=== PATIENT | female | born 1960 | race Two or more races ===

== ENCOUNTER 2024-05-14 14:48 | Inpatient (IN) | payer OTHER ==
[~2024-05-14] VITALS: Ht 154.9 cm; Wt 59.0 kg
[2024-05-14] MEDS ORDERED: CLONAZEPAM1 MG (15:16)
[2024-05-14] MEDS ORDERED: SEROQUEL25 MG (15:16)
[2024-05-14] MEDS ORDERED: NEURONTIN300 MG (15:16)
[2024-05-14] MEDS ORDERED: 0.9 % SODIUM CHLORIDE 1,000 ML IV ONE (16:15)
[2024-05-14] MEDS ORDERED: MULTIVIT INFUSN,ADULT 4,VIT K 10 ML VIAL IV ONE (16:15)
[2024-05-14 17:05] LABS: HEMATOCRIT 30.4 % (36.0-45.00); HEMOGLOBIN 9.6 g/dL (12.0-15.00); MEAN CELL VOLUME 71.1 fL (80.00-100.00); MEAN CORPUSCULAR HEMOGLOBIN 22.4 pg (27.00-32.0); MEAN CORPUSCULAR HGB CONC 31.6 g/dl (32.0-36.0); PLATELET COUNT 786 K/uL (150-450); RED BLOOD COUNT 4.28 M/uL (4.00-6.00); RED CELL DISTRIBUTION WIDTH 17.8 % (11.5-14.5)
[2024-05-14 17:09] LABS: ALBUMIN 2.2 gm/dL (3.4-5.0); BILIRUBIN TOTAL 0.66 mg/dL (0.3-1.2); CALCIUM 8.9 mg/dL (8.5-10.1); CREATININE SERUM 0.73 mg/dL (0.55-1.02); GFR 80.26; GLOBULINA 4.9 G/DL (2.4-3.5); POTASSIUM 4.16 mEq/L (3.5-5.1); TOTAL PROTEIN 7.1 gm/dL (6.4-8.2)
[2024-05-14] MEDS ORDERED: CEFTRIAXONE SODIUM 2,000 MG VIAL IV ONE (18:00)
[2024-05-14] MEDS ORDERED: CEFTRIAXONE SODIUM 2,000 MG in 0.9 % SODIUM CHLORIDE 100 ML IV SCH (20:50)
[2024-05-14] MEDS ORDERED: FAMOTIDINE/PF 20 MG/2 ML VIAL IV SCH (20:50)
[2024-05-14] MEDS ORDERED: ONDANSETRON HCL 4 MG in 0.9 % SODIUM CHLORIDE 50 ML IV PRN (21:00)
[2024-05-14] MEDS ORDERED: 0.9 % SODIUM CHLORIDE 1,000 ML IV SCH (21:00)
[2024-05-14] MEDS ORDERED: ACETAMINOPHEN 325 MG TABLET PO PRN (21:00)
[2024-05-14] MEDS ORDERED: QUETIAPINE FUMARATE 25 MG TABLET PO SCH (21:03)
[2024-05-14] MEDS ORDERED: CLONAZEPAM 1 MG TABLET PO SCH (21:03)
[2024-05-14] MEDS ORDERED: GABAPENTIN 300 MG CAPSULE PO SCH (21:04)
[2024-05-14 23:06] LABS: ABG PH 7.439 (7.35-7.45); ABG PO2 81.7 mmHg (80-100); ABG pCO2 39.8 mmHg (35-45); BASE EXCESS 2.1 mmol/l; BICARBONATE 26.4 mmol/l (23-25); SaO2 96.5 %; Tco2 27.6 mmol/l
[2024-05-14 23:09] LABS: o2 21 %
[2024-05-14 23:10] LABS: allen test SATISFACTORY; puncture site RADIAL LEFT
[2024-05-15] MEDS ORDERED: GUAIFENESIN 200 MG/10 ML BLIST.PACK PO SCH (07:41)
[2024-05-15] MEDS ORDERED: IPRATROPIUM BROMIDE 0.5 MG/2.5 ML AMPUL.NEB IH SCH (07:41)
[2024-05-15 09:21] LABS: PH,URINE 5.5 (5.0-8.0); URINE APPEARANCE Clear; URINE BILIRRUBIN Small (NEGATIVE); URINE BLOOD Negative; URINE COLOR Dark Yellow; URINE GLUCOSE Negative (NEGATIVE); URINE KETONE Negative (NEGATIVE); URINE LEUKOCYTE Trace; URINE NITRATE Negative; URINE PROTEIN 30 (NEGATIVE)
[2024-05-15 09:25] LABS: URINE BACTERIA 1070.9 uL (0.0-1933); URINE EPITHELIAL CELLS 29.9 uL (0.0-38.8); URINE RBC 2.4 uL (0.0-20.8); URINE WBC 34.2 uL (0.0-23.2)
[2024-05-15 10:02] LABS: URINE CAST 0.76 uL (0.0-1.40)
[2024-05-16 08:58] LABS: MEAN CELL VOLUME 72.3 fL (80.00-100.00); MEAN CORPUSCULAR HEMOGLOBIN 22.4 pg (27.00-32.0); RED BLOOD COUNT 4.01 M/uL (4.00-6.00); RED CELL DISTRIBUTION WIDTH 17.7 % (11.5-14.5)
[2024-05-16] MEDS ORDERED: PIPERACILLIN/TAZOBACTAM SODIUM 3.375 GM VIAL IV SCH (09:39)
[2024-05-16 10:36] LABS: PLATELET COUNT 810 K/uL (150-450)
[2024-05-16] MEDS ORDERED: BENZONATATE 200 MG CAPSULE PO SCH (17:00)
[2024-05-17] MEDS ORDERED: AMIODARONE IN DEXTROSE,ISO-OSM 360 MG/200 ML IV.SOLN IV SCH (07:30)
[2024-05-17] MEDS ORDERED: CEFTRIAXONE SODIUM 2,000 MG VIAL IV SCH (09:00)
[2024-05-17] MEDS ORDERED: fentaNYL CITRATE 50 MCG/ML AMPUL IV PUSH ONE (16:30)
[2024-05-17] MEDS ORDERED: MIDAZOLAM HCL 2 MG/2 ML VIAL IV PUSH ONE (16:30)
[2024-05-17 20:36] LABS: TP PLEURAL FLUID 2.6 g/dl
[2024-05-17] MEDS ORDERED: CLONAZEPAM 1 MG TABLET PO SCH (21:00)
[2024-05-17] MEDS ORDERED: FUROsemide 20 MG/2 ML VIAL IV ONE (21:00)
[2024-05-17 21:06] LABS: MONONUCLEAR 98 %; PLEURAL FLUID APPEARANCE HAZY; PLEURAL FLUID COLOR YELLOW; POLYMORPHONUCLEAR 2 %
[2024-05-18] MEDS ORDERED: AMIODARONE HCL 200 MG TABLET PO SCH (09:00)
[2024-05-18 11:13] LABS: ABG PH 7.474 (7.35-7.45); ABG PO2 57.1 mmHg (80-100); ABG pCO2 39.5 mmHg (35-45); BASE EXCESS 4.5 mmol/l; BICARBONATE 28.3 mmol/l (23-25); SaO2 91.7 %; Tco2 29.5 mmol/l
[2024-05-18 11:14] LABS: allen test SATISFACTORY; o2 21 %; puncture site RADIAL RIGHT
[2024-05-18 15:11] LABS: kappa lambda r 0.9 (0.26-1.65); kappa light 25.5 mg/L (3.3-19.4); lambda light 28.4 mg/L (5.7-26.3)
[2024-05-18] MEDS ORDERED: METHYLPREDNISOLONE SOD SUCC 40 MG VIAL IV SCH (21:00)
[2024-05-19] MEDS ORDERED: EMOLLIENT COMBINATION NO.92 2.5 OZ BOTTLE TOP SCH (09:00)
[2024-05-19 11:11] LABS: HEMATOCRIT 29.4 % (36.0-45.00); HEMOGLOBIN 9.1 g/dL (12.0-15.00); MEAN CELL VOLUME 71.6 fL (80.00-100.00); MEAN CORPUSCULAR HEMOGLOBIN 22.1 pg (27.00-32.0); MEAN CORPUSCULAR HGB CONC 30.9 g/dl (32.0-36.0); PLATELET COUNT 746 K/uL (150-450); RED BLOOD COUNT 4.11 M/uL (4.00-6.00); RED CELL DISTRIBUTION WIDTH 18.4 % (11.5-14.5)
[2024-05-19 12:05] LABS: ALBUMIN 1.9 gm/dL (3.4-5.0); BILIRUBIN TOTAL 0.34 mg/dL (0.3-1.2); CALCIUM 8.4 mg/dL (8.5-10.1); CREATININE SERUM 0.44 mg/dL (0.55-1.02); GFR 143.96; GLOBULINA 3.5 G/DL (2.4-3.5); POTASSIUM 3.9 mEq/L (3.5-5.1); TOTAL PROTEIN 5.4 gm/dL (6.4-8.2)
[2024-05-19] MEDS ORDERED: ENOXAPARIN SODIUM 40 MG/0.4 ML SYRINGE SUBCUTANEO SCH (19:53)
[2024-05-20] MEDS ORDERED: AMIODARONE HCL 200 MG TABLET PO SCH (09:00)
[2024-05-20] MEDS ORDERED: LACTULOSE 20 G/30 ML BLIST.PACK PO SCH (09:00)
[2024-05-21] MEDS ORDERED: TUBERCULIN,PURIF.PROT.DERIV. 5 TU/0.1 ML VIAL ID NR (17:15)
[2024-05-22] MEDS ORDERED: ENOXAPARIN SODIUM 40 MG/0.4 ML SYRINGE SUBCUTANEO SCH (21:00)
[2024-05-23 08:14] LABS: HEMATOCRIT 25.6 % (36.0-45.00); MEAN CELL VOLUME 72.1 fL (80.00-100.00); MEAN CORPUSCULAR HGB CONC 31.6 g/dl (32.0-36.0); PLATELET COUNT 600 K/uL (150-450); RED BLOOD COUNT 3.56 M/uL (4.00-6.00); RED CELL DISTRIBUTION WIDTH 18.1 % (11.5-14.5)
[2024-05-23 08:47] LABS: HEMOGLOBIN 8.1 g/dL (12.0-15.00); MEAN CORPUSCULAR HEMOGLOBIN 22.7 pg (27.00-32.0)
[2024-05-23] MEDS ORDERED: ENOXAPARIN SODIUM 80 MG/0.8 ML SYRINGE SUBCUTANEO SCH (09:00)
[2024-05-23 09:16] LABS: ALBUMIN 1.7 gm/dL (3.4-5.0); BILIRUBIN TOTAL 0.38 mg/dL (0.3-1.2); CREATININE SERUM 0.35 mg/dL (0.55-1.02); GFR 187.47; GLOBULINA 2.9 G/DL (2.4-3.5); POTASSIUM 3.64 mEq/L (3.5-5.1); TOTAL PROTEIN 4.6 gm/dL (6.4-8.2)
[2024-05-23] MEDS ORDERED: ENOXAPARIN SODIUM 60 MG/0.6 ML SYRINGE SUBCUTANEO SCH (21:00)
[2024-05-24] MEDS ORDERED: KETOROLAC TROMETHAMINE 30 MG VIAL IM NR (08:00)
[2024-05-24] MEDS ORDERED: ZINC OXIDE 30 GM TUBE TOP SCH (21:00)
[2024-05-24] MEDS ORDERED: QUETIAPINE FUMARATE 25 MG TABLET PO SCH (21:00)
[2024-05-25] MEDS ORDERED: AMIODARONE HCL 200 MG TABLET PO SCH (09:00)
[2024-05-25] MEDS ORDERED: EPOETIN ALFA-EPBX 10,000 UNIT/ML VIAL (Retacrit) SUBCUTANEO SCH (09:00)
[2024-05-25] MEDS ORDERED: FUERA DE FORMULARIO 1 U FF PO SCH (17:00)
[2024-05-25] MEDS ORDERED: TEMAZEPAM 15 MG CAPSULE PO SCH (21:00)
[2024-05-26] MEDS ORDERED: ALPRAzolam 0.25 MG TABLET PO SCH (09:00)
[2024-05-26 09:20] LABS: HEMATOCRIT 29.3 % (36.0-45.00); MEAN CORPUSCULAR HEMOGLOBIN 22.2 pg (27.00-32.0); MEAN CORPUSCULAR HGB CONC 30.8 g/dl (32.0-36.0); PLATELET COUNT 495 K/uL (150-450); RED BLOOD COUNT 4.07 M/uL (4.00-6.00); RED CELL DISTRIBUTION WIDTH 19.1 % (11.5-14.5)
[2024-05-26] MEDS ORDERED: TACROLIMUS 1 MG CAPSULE PO SCH (09:24)
[2024-05-26 10:29] LABS: CALCIUM 8.5 mg/dL (8.5-10.1); CREATININE SERUM 0.34 mg/dL (0.55-1.02); GFR 193.84; POTASSIUM 4.31 mEq/L (3.5-5.1)
[2024-05-27] MEDS ORDERED: MINERAL OIL 30 ML BLIST.PACK PO NR (08:30)
[2024-05-27] MEDS ORDERED: MAGNESIUM HYDROXIDE 30 ML BLIST.PACK PO NR (08:30)
[2024-05-27] MEDS ORDERED: LACTULOSE 20 G/30 ML BLIST.PACK PO SCH (09:00)
[2024-05-27] MEDS ORDERED: AMIODARONE HCL 200 MG TABLET PO SCH (09:00)
[2024-05-28 08:34] LABS: ALBUMIN 1.9 gm/dL (3.4-5.0); BILIRUBIN TOTAL 0.23 mg/dL (0.3-1.2); CALCIUM 8.3 mg/dL (8.5-10.1); CREATININE SERUM 0.41 mg/dL (0.55-1.02); GFR 156.18; GLOBULINA 3.1 G/DL (2.4-3.5); POTASSIUM 3.69 mEq/L (3.5-5.1)
[2024-05-28 08:36] LABS: HEMATOCRIT 26.6 % (36.0-45.00); MEAN CELL VOLUME 72.6 fL (80.00-100.00); MEAN CORPUSCULAR HGB CONC 31.1 g/dl (32.0-36.0); PLATELET COUNT 587 K/uL (150-450); RED BLOOD COUNT 3.66 M/uL (4.00-6.00); RED CELL DISTRIBUTION WIDTH 19.5 % (11.5-14.5)
[2024-05-28 10:00] LABS: MEAN CORPUSCULAR HEMOGLOBIN 22.6 pg (27.00-32.0)
[2024-05-28 10:01] LABS: HEMOGLOBIN 8.3 g/dL (12.0-15.00)
[2024-05-31 09:02] LABS: HEMATOCRIT 28.8 % (36.0-45.00); MEAN CELL VOLUME 73.2 fL (80.00-100.00); MEAN CORPUSCULAR HEMOGLOBIN 22.8 pg (27.00-32.0); MEAN CORPUSCULAR HGB CONC 31.1 g/dl (32.0-36.0); PLATELET COUNT 531 K/uL (150-450); RED BLOOD COUNT 3.93 M/uL (4.00-6.00); RED CELL DISTRIBUTION WIDTH 20.1 % (11.5-14.5)
[2024-05-31 09:20] LABS: CALCIUM 8.6 mg/dL (8.5-10.1); CREATININE SERUM 0.48 mg/dL (0.55-1.02); GFR 130.2; POTASSIUM 4.7 mEq/L (3.5-5.1)
[2024-06-01] MEDS ORDERED: fentaNYL CITRATE 50 MCG/ML AMPUL IV PUSH ONE (16:15)
[2024-06-01] MEDS ORDERED: MIDAZOLAM HCL 2 MG/2 ML VIAL IV PUSH ONE (16:15)
[2024-06-02] MEDS ORDERED: fentaNYL CITRATE 50 MCG/ML AMPUL IV PUSH NR (17:00)
[2024-06-02] MEDS ORDERED: MIDAZOLAM HCL 2 MG/2 ML VIAL IV PUSH NR (17:00)
[2024-06-02] MEDS ORDERED: fentaNYL CITRATE 50 MCG/ML AMPUL IV ONE (22:15)
[2024-06-04] MEDS ORDERED: DEXAMETHASONE SODIUM PHOSPHATE 4 MG/ML VIAL IV SCH (09:00)
[2024-06-04] MEDS ORDERED: LORATADINE 10 MG TABLET PO SCH (09:00)
[2024-06-04] MEDS ORDERED: GUAIFENESIN 200 MG/10 ML BLIST.PACK PO SCH (12:00)
[2024-06-05 08:48] LABS: ALBUMIN 2.4 gm/dL (3.4-5.0); BILIRUBIN TOTAL 0.29 mg/dL (0.3-1.2); CALCIUM 9.3 mg/dL (8.5-10.1); CREATININE SERUM 0.55 mg/dL (0.55-1.02); GFR 111.28; POTASSIUM 4.81 mEq/L (3.5-5.1); TOTAL PROTEIN 6.4 gm/dL (6.4-8.2)
[2024-06-05 08:50] LABS: C-REACTIVE PROTEIN 8.44 MG/DL (0.00-0.29)
[2024-06-05 10:38] LABS: HEMATOCRIT 32.8 % (36.0-45.00); HEMOGLOBIN 10.4 g/dL (12.0-15.00); MEAN CELL VOLUME 72.7 fL (80.00-100.00); MEAN CORPUSCULAR HEMOGLOBIN 23.1 pg (27.00-32.0); MEAN CORPUSCULAR HGB CONC 31.7 g/dl (32.0-36.0); PLATELET COUNT 546 K/uL (150-450); RED BLOOD COUNT 4.51 M/uL (4.00-6.00); RED CELL DISTRIBUTION WIDTH 20.4 % (11.5-14.5)
[2024-06-05 10:57] LABS: ERYTHROCYTE SEDIMENTATION RATE > 130 mm/hr
[2024-06-09 16:37] LABS: CALCIUM 9.1 mg/dL (8.5-10.1); CREATININE SERUM 0.69 mg/dL (0.55-1.02); GFR 85.65; POTASSIUM 5.05 mEq/L (3.5-5.1)
[2024-06-09 16:38] LABS: C-REACTIVE PROTEIN 0.59 MG/DL (0.00-0.29)
[2024-06-09 16:54] LABS: HEMATOCRIT 38.2 % (36.0-45.00); MEAN CELL VOLUME 73.7 fL (80.00-100.00); MEAN CORPUSCULAR HGB CONC 30.4 g/dl (32.0-36.0); PLATELET COUNT 647 K/uL (150-450); RED BLOOD COUNT 5.19 M/uL (4.00-6.00); RED CELL DISTRIBUTION WIDTH 22.1 % (11.5-14.5)
[2024-06-09 17:02] LABS: HEMOGLOBIN 11.6 g/dL (12.0-15.00); MEAN CORPUSCULAR HEMOGLOBIN 22.3 pg (27.00-32.0)
[2024-06-09 17:07] LABS: ERYTHROCYTE SEDIMENTATION RATE 26 mm/hr
[2024-06-09] MEDS ORDERED: [UNRECOGNIZED DRUG - OTHER] IV NR (18:00)
[2024-06-10] MEDS ORDERED: DEXAMETHASONE 4 MG TABLET PO SCH (09:00)
[2024-06-10 14:20] LABS: ABG PH 7.451 (7.35-7.45); ABG PO2 63.5 mmHg (80-100); ABG pCO2 38.6 mmHg (35-45); BASE EXCESS 2.3 mmol/l; BICARBONATE 26.3 mmol/l (23-25); SaO2 93.2 %
[2024-06-10 14:21] LABS: Tco2 27.5 mmol/l; allen test SATISFACTORY; o2 21 %; puncture site RADIAL RIGHT
== END 2024-06-11 17:22 | disposition home or self-care (01) | DRG 640 ==
LOC: ER 14:49 → SEC-K 20:50 → MEDJ 20:50
PROVIDERS: General Practice; Internal Medicine; Internal Medicine Hematology & Oncology; Nurse Practitioner Family; Radiology Vascular & Interventional Radiology; Student in an Organized Health Care Education/Training Program; ADMIT Internal Medicine; ATTEND Internal Medicine
PROC: BW24ZZZ Computerized Tomography (CT Scan) of Chest and Abdomen (ICD-10-PCS; 2024-05-14)
PROC: BW21ZZZ Computerized Tomography (CT Scan) of Abdomen and Pelvis (ICD-10-PCS; 2024-05-14)
PROC: 0W993ZX Drainage of Right Pleural Cavity, Percutaneous Approach, Diagnostic (ICD-10-PCS; principal; 2024-05-17)
PROC: 0F903ZX Drainage of Liver, Percutaneous Approach, Diagnostic (ICD-10-PCS; 2024-05-17)
PROC: B24BYZZ Ultrasonography of Heart with Aorta using Other Contrast (ICD-10-PCS; 2024-05-17)
PROC: 4A12X4Z Monitoring of Cardiac Electrical Activity, External Approach (ICD-10-PCS; 2024-05-17)
PROC: 0W9930Z Drainage of Right Pleural Cavity with Drainage Device, Percutaneous Approach (ICD-10-PCS; 2024-06-02)
PROC: 0J9C3ZX Drainage of Pelvic Region Subcutaneous Tissue and Fascia, Percutaneous Approach, Diagnostic (ICD-10-PCS; 2024-06-02)
PROC: 0W9B3ZX Drainage of Left Pleural Cavity, Percutaneous Approach, Diagnostic (ICD-10-PCS; 2024-06-03)
DX: R63.0 Anorexia (principal); I26.99 Other pulmonary embolism without acute cor pulmonale; J90 Pleural effusion, not elsewhere classified; I31.9 Disease of pericardium, unspecified; C22.9 Malignant neoplasm of liver, not specified as primary or secondary; C34.91 Malignant neoplasm of unspecified part of right bronchus or lung; C34.92 Malignant neoplasm of unspecified part of left bronchus or lung; C85.90 Non-Hodgkin lymphoma, unspecified, unspecified site; C77.2 Secondary and unspecified malignant neoplasm of intra-abdominal lymph nodes; D63.0 Anemia in neoplastic disease; I48.91 Unspecified atrial fibrillation; R09.02 Hypoxemia; L29.9 Pruritus, unspecified; Z92.21 Personal history of antineoplastic chemotherapy

== ENCOUNTER 2025-02-01 09:28 | Inpatient (IN) | payer OTHER ==
[~2025-02-01] VITALS: Ht 154.9 cm; Wt 56.7 kg
[~2025-02-01 09:28] MED LIST: CLONAZEPAM1 MG; NEURONTIN300 MG; SEROQUEL25 MG
[2025-02-01] MEDS ORDERED: MORPHINE SULFATE 4 MG/ML VIAL IV STA (10:18)
[2025-02-01 10:54] LABS: HEMATOCRIT 42.9 % (36.0-45.00); HEMOGLOBIN 13.7 g/dL (12.0-15.00); MEAN CELL VOLUME 77.7 fL (80.00-100.00); MEAN CORPUSCULAR HEMOGLOBIN 24.8 pg (27.00-32.0); MEAN CORPUSCULAR HGB CONC 31.9 g/dl (32.0-36.0); RED BLOOD COUNT 5.53 M/uL (4.00-6.00); RED CELL DISTRIBUTION WIDTH 18.4 % (11.5-14.5)
[2025-02-01 10:56] LABS: PLATELET COUNT 534 K/uL (150-450)
[2025-02-01 11:28] LABS: CALCIUM 9.5 mg/dL (8.5-10.1); CREATININE SERUM 0.62 mg/dL (0.55-1.02); GFR 96.6; POTASSIUM 3.98 mEq/L (3.5-5.1)
[2025-02-01] MEDS ORDERED: DEXAMETHASONE SODIUM PHOSPHATE 4 MG/ML VIAL IV STA (11:53)
[2025-02-01] MEDS ORDERED: GABAPENTIN 300 MG CAPSULE PO SCH (11:54)
[2025-02-01] MEDS ORDERED: MORPHINE SULFATE 4 MG/ML VIAL IV PRN (12:00)
[2025-02-01] MEDS ORDERED: 0.9 % SODIUM CHLORIDE 1,000 ML IV SCH (12:00)
[2025-02-01 12:36] LABS: URINE BACTERIA 653.5 uL (0.0-1933); URINE EPITHELIAL CELLS 19.6 uL (0.0-38.8); URINE RBC 4.5 uL (0.0-20.8); URINE WBC 5.8 uL (0.0-23.2)
[2025-02-01 13:04] LABS: PH,URINE 6.5 (5.0-8.0); URINE APPEARANCE Clear; URINE BILIRRUBIN Negative (NEGATIVE); URINE BLOOD Negative; URINE COLOR Yellow; URINE GLUCOSE Negative (NEGATIVE); URINE KETONE Negative (NEGATIVE); URINE LEUKOCYTE Negative; URINE NITRATE Negative; URINE PROTEIN Negative (NEGATIVE); URINE UROBILINOGEN 0.2 E.U./dl
[2025-02-01 13:25] VITALS: BP 121/74; O2SAT 97
[2025-02-01] MEDS ORDERED: DEXAMETHASONE SODIUM PHOSPHATE 4 MG/ML VIAL ONE ×2 (13:57→20:55)
[2025-02-01] MEDS ORDERED: DEXAMETHASONE SODIUM PHOSPHATE 4 MG/ML VIAL IV SCH (14:00)
[2025-02-01 14:08] VITALS: BP 121/74
[2025-02-01] MEDS ORDERED: FAMOtidine 20 MG TABLET PO SCH (17:00)
[2025-02-01] MEDS ORDERED: DOCUSATE SODIUM 100MG CAP PO SCH (17:00)
[2025-02-01] MEDS ORDERED: fentaNYL 25 MCG PATCH.TD72 TD SCH (18:00)
[2025-02-01 23:48] VITALS: BP 107/69; O2SAT 99
[2025-02-02] MEDS ORDERED: DEXAMETHASONE SODIUM PHOSPHATE 4 MG/ML VIAL ONE (03:00)
[2025-02-02 07:58] VITALS: BP 122/65; O2SAT 98
[2025-02-02] MEDS ORDERED: MORPHINE SULFATE 4 MG/ML CARTRIDGE IV PRN (13:45)
[2025-02-02 16:27] VITALS: BP 117/68; O2SAT 96
[2025-02-03 01:06] VITALS: BP 103/65; O2SAT 98
[2025-02-03 08:00] VITALS: BP 117/76; O2SAT 97
[2025-02-03] MEDS ORDERED: DEXAMETHASONE 4 MG TABLET PO SCH (09:00)
[2025-02-03 09:22] LABS: MAGNESIUM 2.4 mg/dL (1.8-2.4); PHOSPHOROUS 3.8 mg/dL (2.5-4.9)
[2025-02-03 09:24] LABS: C-REACTIVE PROTEIN 2.47 MG/DL (0.00-0.29)
[2025-02-03] MEDS ORDERED: GABAPENTIN300 MG PO (12:57)
[2025-02-03] MEDS ORDERED: DEXAMETHASONE4 MG PO (12:59)
[2025-02-03] MEDS ORDERED: FAMOTIDINE20 MG PO (12:59)
[2025-02-03] MEDS ORDERED: FENTANYL1 EAC3 TD (12:59)
[2025-02-03] MEDS ORDERED: ENULOSE10 GM/15 M PO (13:00)
== END 2025-02-03 14:59 | disposition home or self-care (01) | DRG 841 ==
LOC: ER 09:28 → SURH 13:32 → SEC-K 13:32 → SURH 02-02 02:06
PROVIDERS: General Practice; ADMIT Internal Medicine Hematology & Oncology; ATTEND Internal Medicine Hematology & Oncology
PROC: BR29ZZZ Computerized Tomography (CT Scan) of Lumbar Spine (ICD-10-PCS; principal; 2025-02-01)
PROC: BW21ZZZ Computerized Tomography (CT Scan) of Abdomen and Pelvis (ICD-10-PCS; 2025-02-01)
PROC: 8E0ZXY6 Isolation (ICD-10-PCS; 2025-02-01)
DX: C77.1 Secondary and unspecified malignant neoplasm of intrathoracic lymph nodes (principal); C78.00 Secondary malignant neoplasm of unspecified lung; J90 Pleural effusion, not elsewhere classified; C78.7 Secondary malignant neoplasm of liver and intrahepatic bile duct; C77.2 Secondary and unspecified malignant neoplasm of intra-abdominal lymph nodes; G89.3 Neoplasm related pain (acute) (chronic); M54.9 Dorsalgia, unspecified; D63.0 Anemia in neoplastic disease

== ENCOUNTER 2025-04-19 07:44 | Day surgery (SDC) | payer OTHER ==
[2025-04-12 11:38] LABS: BASO % 0.2 % (0.1-1.2); HEMATOCRIT 39.6 % (34.1-44.9); HEMOGLOBIN 12.5 g/dL (11.2-15.7); LYMPH # 0.89 (1.18-3.74); MEAN CORPUSCULAR HEMOGLOBIN 25.8 pg (25.6-32.2); MONO # 0.79 (0.24-0.82); MONO % 4.5 % (4.7-12.5); NEUT # 15.69 (1.56-6.13); NEUT % 88.6 % (34.0-71.1); PLATELET COUNT 234 K/uL (163-369); RED BLOOD COUNT 4.84 M/uL (3.93-5.22); RED CELL DISTRIBUTION WIDTH 22.8 % (11.6-14.4)
[2025-04-12 11:42] LABS: PH,URINE 6.5 (5.0-8.0); URINE APPEARANCE Clear; URINE BILIRRUBIN Negative (NEGATIVE); URINE BLOOD Negative; URINE COLOR Yellow; URINE GLUCOSE Negative (NEGATIVE); URINE KETONE Negative (NEGATIVE); URINE LEUKOCYTE Negative; URINE NITRATE Negative; URINE PROTEIN Negative (NEGATIVE)
[2025-04-12 11:47] LABS: URINE BACTERIA 23.1 uL (0.0-1933); URINE RBC 2.4 uL (0.0-20.8)
[2025-04-12 11:58] LABS: PARTIAL THROMBOPLASTIN TIME 25.4 SECONDS (22.0-34.0); PROTHROMBIN TIME 10.9 SECONDS (9.0-11.5)
[2025-04-12 12:41] LABS: ALBUMIN 2.7 gm/dL (3.4-5.0); BILIRUBIN TOTAL 0.43 mg/dL (0.3-1.2); CALCIUM 9.5 mg/dL (8.5-10.1); CREATININE SERUM 0.51 mg/dL (0.55-1.02); GFR 121.02; GLOBULINA 3.6 G/DL (2.4-3.5); POTASSIUM 4.29 mEq/L (3.5-5.1); TOTAL PROTEIN 6.3 gm/dL (6.4-8.2)
[2025-04-12 12:57] LABS: URINE EPITHELIAL CELLS 1.2 uL (0.0-38.8); URINE WBC 0.3 uL (0.0-23.2)
[~2025-04-19 07:44] MED LIST changes: +CLONAZEPAM1 MG PO; +DECADRON; +DEXAMETHASONE4 MG PO; +ENULOSE10 GM/15 M PO; +FAMOTIDINE20 MG PO; +FENTANYL1 EAC3 TD; +GABAPENTIN300 MG PO; +REGLAN5 MG/5 ML; +RESTORIL30 M1 PO; +SEROQUEL XR50 MG PO
[2025-04-19] MEDS ORDERED: LIDOCAINE HCL 1%/EPINEPHRINE 20ML VIAL IJ ONE (09:48)
[2025-04-19] MEDS ORDERED: HEPARIN SODIUM,PORCINE/PF 100 UNIT/ML SYRINGE IV ONE (09:48)
[2025-04-19] MEDS ORDERED: BUPIVACAINE HCL/Mpf 0.5% 10ML VIAL ONE (09:48)
[2025-04-19] MEDS ORDERED: CEFAZOLIN SODIUM 1,000 MG VIAL ONE ×2 (10:02→14:03)
[2025-04-19] MEDS ORDERED: LIDOCAINE HCL 1% 20 ML VIAL IJ ONE (11:28)
[2025-04-19] MEDS ORDERED: CEFAZOLIN SODIUM 1,000 MG VIAL IV SCH (12:45)
== END 2025-04-19 15:10 | disposition home or self-care (01) ==
LOC: CIR.AMB 07:44
PROVIDERS: ATTEND Specialist
DX: C84.48 Peripheral T-cell lymphoma, not elsewhere classified, lymph nodes of multiple sites (principal); Z88.8 Allergy status to other drugs, medicaments and biological substances
CPT/HCPCS: 36561; C1751

== ENCOUNTER 2025-09-20 07:17 | Outpatient (CLI) | payer OTHER | END 2025-09-20 07:18 | disposition home or self-care (01) | LOC: NUCLEAR 07:17 | PROVIDERS: ATTEND Internal Medicine Hematology & Oncology | DX: C84.70 Anaplastic large cell lymphoma, ALK-negative, unspecified site (principal) | CPT/HCPCS: 78816; A9552 ==

== ENCOUNTER 2025-10-11 14:34 | Emergency (ER) | payer OTHER ==
[~2025-10-11] VITALS: Ht 154.9 cm; Wt 63.0 kg
[2025-10-11] MEDS ORDERED: ONDANSETRON HCL 4 MG in 0.9 % SODIUM CHLORIDE 50 ML IV ONE (15:30)
[2025-10-11] MEDS ORDERED: MORPHINE SULFATE 4 MG/ML VIAL IV ONE (15:30)
[2025-10-11] MEDS ORDERED: 0.9 % SODIUM CHLORIDE 1,000 ML IV ONE (15:30)
[2025-10-11] MEDS ORDERED: FAMOTIDINE/PF 20 MG in 0.9 % SODIUM CHLORIDE 8 ML IV PUSH ONE (15:30)
[2025-10-11] MEDS ORDERED: ONDANSETRON HCL 2 MG/ML VIAL ONE (15:57)
[2025-10-11] MEDS ORDERED: FAMOTIDINE/PF 20 MG/2 ML VIAL ONE (15:57)
[2025-10-11 16:38] LABS: BASO % 0.4 % (0.1-1.2); EOS # 0.08 (0.04-0.54); EOS % 0.6 % (0.7-7.0); LYMPH # 1.27 (1.18-3.74); LYMPH % 9.6 % (19.3-53.1); MEAN PLATELET VOLUME 9.10 fl (9.4-12.4); MONO # 1.10 (0.24-0.82); MONO % 8.3 % (4.7-12.5); NEUT # 10.40 (1.56-6.13); NEUT % 78.4 % (34.0-71.1)
[2025-10-11 16:39] LABS: RED CELL DISTRIBUTION WIDTH 16.1 % (11.6-14.4)
[2025-10-11 16:59] LABS: INR < 0.93
[2025-10-11 17:56] LABS: ALT/SGPT 36.0 U/L (12-78); AST/SGOT 11.0 U/L (15-37); BILIRUBIN TOTAL 0.21 mg/dL (0.3-1.2); BUN CREA RATIO 46.0 (7.0-25.0); CREATININE SERUM 0.48 mg/dL (0.55-1.02); GFR 129.8; GLOBULINA 3.0 G/DL (2.4-3.5); GLUCOSE FASTING 90.0 mg/dL (65-100); OSMOLALITY SERUM 288.0 MOSM/KG (275-295)
[2025-10-11 18:56] LABS: URINE APPEARANCE Cloudy; URINE BILIRRUBIN Negative (NEGATIVE); URINE BLOOD Negative; URINE COLOR Yellow; URINE GLUCOSE Negative (NEGATIVE); URINE KETONE Negative (NEGATIVE); URINE LEUKOCYTE Trace; URINE NITRATE Positive; URINE PROTEIN Negative (NEGATIVE); URINE UROBILINOGEN 0.2 E.U./dl
[2025-10-11 19:00] LABS: URINE EPITHELIAL CELLS 9.4 uL (0.0-38.8); URINE RBC 4.6 uL (0.0-20.8); URINE WBC 52.2 uL (0.0-23.2)
[2025-10-11 19:06] LABS: URINE BACTERIA > 9821.5 uL (0.0-1933); URINE CAST 0.00 uL (0.0-1.40)
[2025-10-11] MEDS ORDERED: LACTULOSE 10 G/15 ML ML PO ONE (20:00)
[2025-10-11] MEDS ORDERED: MINERAL OIL 30 ML BLIST.PACK PO ONE (20:00)
[2025-10-11] MEDS ORDERED: MINERAL OIL 30 ML BLIST.PACK ONE (21:50)
[2025-10-11] MEDS ORDERED: LACTULOSE 20 G/30 ML BLIST.PACK ONE (21:50)
[2025-10-11] MEDS ORDERED: PYRIDIUM DS200 MG PO (22:02)
[2025-10-11] MEDS ORDERED: CIPRO500 MG PO (22:02)
[2025-10-11] MEDS ORDERED: MIRALAX17 GM PO (22:02)
== END 2025-10-11 22:17 | disposition home or self-care (01) ==
LOC: ER 14:34
PROVIDERS: General Practice
DX: N39.0 Urinary tract infection, site not specified (principal); K59.09 Other constipation; R10.9 Unspecified abdominal pain; Z88.6 Allergy status to analgesic agent; Z88.9 Allergy status to unspecified drugs, medicaments and biological substances; Z91.013 Allergy to seafood
CPT/HCPCS: 36415; 74176; 93005; 96365; 96366; 99284; J2270; J2405; J3490; J7030